=== PATIENT | female | born 1980 | race Caucasian/White ===

== ENCOUNTER 2017-01-27 12:00 | Inpatient (IN) | payer BC ==
[~2017-01-27] VITALS: Ht 170.2 cm; Wt 74.4 kg
[2017-01-27] MEDS ORDERED: LR 1,000 ML IV ONE (12:07)
[2017-01-27 12:25] LABS: BASOPHILS % (AUTO) 0.4 % (0.0-2.0); EOSINOPHILS # (AUTO) 0.1 K/uL (0.0-0.4); EOSINOPHILS % (AUTO) 1.1 % (0.0-4.0); HEMATOCRIT 36.6 % (36-48); LYMPHOCYTES # (AUTO) 1.8 K/uL (1.0-5.5); LYMPHOCYTES % (AUTO) 16.2 % (20.5-51.5); MEAN CORPUSCULAR HEMOGLOBIN 33 pg (27-31); MEAN CORPUSCULAR HGB CONC 36 % (32-36); MEAN CORPUSCULAR VOLUME 92 fL (79.0-98.0); MONOCYTES # (AUTO) 0.6 K/uL (0.0-1.0); MONOCYTES % (AUTO) 5.7 % (1.7-9.3); NEUTROPHILS # (AUTO) 8.4 K/uL (1.8-7.7); NEUTROPHILS % (AUTO) 76.6 % (40.0-70.0); PLATELET COUNT (AUTO) 196 K/uL (130-430); RED CELL DISTRIBUTION WIDTH 12.6 % (9.0-15.0); WHITE BLOOD COUNT (AUTO) 10.9 K/uL (4.8-10.8)
[2017-01-27 12:26] LABS: BILIRUBIN,URINE NEGATIVE (NEGATIVE); CLARITY/URINE SL HAZY (CLEAR); COLOR,URINE YELLOW (YELLOW); GLUCOSE,URINE NEGATIVE (NEGATIVE); KETONES,URINE TRACE (NEGATIVE); LEUKOCYTE ESTERASE ,URINE 3+ (NEGATIVE); NITRITE, URINE NEGATIVE (NEGATIVE); PH,URINE 7.5 (5.0-8.0); PROTEIN URINE NEGATIVE (NEGATIVE); UROBILINOGEN,URINE 0.2 (0.2-1.0)
[2017-01-27 12:29] LABS: BLOOD, URINE TRACE (NEGATIVE)
[2017-01-27] MEDS ORDERED: CEFAZOLIN 2 GM IVPB PREMIX 50 ML IV ONE (12:30)
[2017-01-27 12:35] LABS: BACTERIA,URINE FEW /HPF (None Seen); WBC,URINE 20-50 /HPF (0-3)
[2017-01-27 12:36] VITALS: BP_SYST 114
[2017-01-27] MEDS ORDERED: CLINDAMYCIN 600 MG in D5W 50 ML IV ONE (12:45)
[2017-01-27] MEDS ORDERED: LR 1,000 ML IV SCH ×2 (13:12→13:58)
[2017-01-27] MEDS ORDERED: ONDANSETRON HCL 4 MG/2 ML VIAL IVP ONE (13:15)
[2017-01-27] MEDS ORDERED: BISACODYL 10 MG/SUPPOSITORY RC PRN (13:15)
[2017-01-27] MEDS ORDERED: MORPHINE SULFATE 10MG/10ML PF AMP EP ONE (13:15)
[2017-01-27] MEDS ORDERED: LANOLIN 7 GM OINT. TP PRN (13:15)
[2017-01-27] MEDS ORDERED: OXYTOCIN 10 UNIT/ML VIAL IV ONE (13:15)
[2017-01-27] MEDS ORDERED: MEASLES,MUMPS&RUBELLA VACC/PF 12500 UNIT/0.5 ML VIAL SUBQ PRN (13:15)
[2017-01-27] MEDS ORDERED: MIDAZOLAM HCL 5 MG/5 ML VIAL IVP ONE (13:15)
[2017-01-27] MEDS ORDERED: MEPERIDINE HCL/PF 100 MG/ML AMP IM PRN (13:15)
[2017-01-27] MEDS ORDERED: LR 1,000 ML IV.SOLN IV ONE (13:15)
[2017-01-27] MEDS ORDERED: SENNOSIDES/DOCUSATE SODIUM 1 TAB TABLET(SENOKOT-S) PO PRN (13:15)
[2017-01-27] MEDS ORDERED: RHO(D) IMMUNE GLOBULIN/MALTOSE 1500 UNITS/1.3 ML (WINHRO) IM PRN (13:15)
[2017-01-27] MEDS ORDERED: CLINDAMYCIN PHOSPHATE 600 mg/50mL D5W IV ONE (13:15)
[2017-01-27] MEDS ORDERED: NALOXONE HCL 0.4 MG/ML AMP (NARCAN) IVP PRN (14:00)
[2017-01-27] MEDS ORDERED: MEPERIDINE HCL/PF 50 MG/ML AMP IVP PRN ×2 (14:00)
[2017-01-27] MEDS ORDERED: MORPHINE SULFATE 10MG/10ML PF AMP SP SCH (14:00)
[2017-01-27] MEDS ORDERED: MEPERIDINE HCL/PF 25 MG/ML DISP.SYRIN IVP PRN (14:00)
[2017-01-27] MEDS ORDERED: METOCLOPRAMIDE HCL 10 MG/2 ML VIAL IVP PRN (14:00)
[2017-01-27] MEDS ORDERED: KETOROLAC TROMETHAMINE 60 MG/2 ML VIAL IM PRN (14:00)
[2017-01-27] MEDS ORDERED: DIPHENHYDRAMINE INJ 50 MG/ML VIAL IM PRN (14:00)
[2017-01-27] MEDS ORDERED: ONDANSETRON HCL 4 MG/2 ML VIAL IVP PRN (14:00)
[2017-01-27 14:25] VITALS: BP_SYST 98
[2017-01-27] MEDS ORDERED: OXYTOCIN/NORMAL SALINE 1,000 ML IV ONE (14:45)
[2017-01-27] MEDS: CLINDAMYCIN 600 mg/50mL D5W 50 ML IV SCH (20:03)
[2017-01-27] MEDS ORDERED: TEMAZEPAM 15 MG CAPSULE PO PRN (21:00)
[2017-01-28] MEDS: CLINDAMYCIN 600 mg/50mL D5W 50 ML IV SCH ×2 (03:01→09:05)
[2017-01-28 06:57] LABS: BASOPHILS % (AUTO) 0.3 % (0.0-2.0); EOSINOPHILS % (AUTO) 0.3 % (0.0-4.0); HEMATOCRIT 32.2 % (36-48); HEMOGLOBIN 11.1 g/dL (12.0-16.0); LYMPHOCYTES # (AUTO) 1.7 K/uL (1.0-5.5); LYMPHOCYTES % (AUTO) 12.2 % (20.5-51.5); MEAN CORPUSCULAR HEMOGLOBIN 32 pg (27-31); MEAN CORPUSCULAR HGB CONC 34 % (32-36); MEAN CORPUSCULAR VOLUME 93 fL (79.0-98.0); MONOCYTES # (AUTO) 0.7 K/uL (0.0-1.0); MONOCYTES % (AUTO) 5.1 % (1.7-9.3); NEUTROPHILS # (AUTO) 11.6 K/uL (1.8-7.7); NEUTROPHILS % (AUTO) 82.1 % (40.0-70.0); PLATELET COUNT (AUTO) 213 K/uL (130-430); RED BLOOD CELL COUNT(AUTO) 3.48 MIL/uL (4.2-6.2); RED CELL DISTRIBUTION WIDTH 12.9 % (9.0-15.0)
[2017-01-28] MEDS: HYDROcodone/ACETAMIN 5-325 MG TAB (NORCO/ VICODIN) PO PRN ×4 (07:20→20:57)
[2017-01-28] MEDS: DOCUSATE SODIUM 100 MG CAPSULE PO PRN ×2 (09:06→20:55)
[2017-01-28] MEDS: SIMETHICONE 80 MG TAB.CHEW PO PRN ×4 (09:07→20:55)
[2017-01-28] MEDS: IBUPROFEN 800 MG TABLET PO PRN ×2 (09:07→14:42)
[2017-01-29] MEDS: IBUPROFEN 800 MG TABLET PO PRN ×5 (01:35→23:52)
[2017-01-29] MEDS: HYDROcodone/ACETAMIN 5-325 MG TAB (NORCO/ VICODIN) PO PRN ×3 (05:13→21:45)
[2017-01-29] MEDS: SIMETHICONE 80 MG TAB.CHEW PO PRN ×2 (12:11→21:44)
[2017-01-29] MEDS: DOCUSATE SODIUM 100 MG CAPSULE PO PRN (21:44)
[2017-01-30] MEDS: HYDROcodone/ACETAMIN 5-325 MG TAB (NORCO/ VICODIN) PO PRN ×3 (01:59→10:57)
== END 2017-01-30 12:55 | disposition home or self-care (01) | DRG 766 ==
LOC: SPU 12:00
PROVIDERS: ADMIT Specialist; ATTEND Specialist
PROC: 10D00Z1 Extraction of Products of Conception, Low, Open Approach (ICD-10-PCS; principal; 2017-01-27 13:30)
DX: O34.211 Maternal care for low transverse scar from previous cesarean delivery (principal); O99.89 Other specified diseases and conditions complicating pregnancy, childbirth and the puerperium; O34.13 Maternal care for benign tumor of corpus uteri, third trimester; Z37.0 Single live birth; Z3A.39 39 weeks gestation of pregnancy; Z88.1 Allergy status to other antibiotic agents; O09.523 Supervision of elderly multigravida, third trimester
CPT/HCPCS: 36415; 81000-TC; 85025; 86592; 86886; 86900; 86901; 94760; J0690; J1885; J2250; J2274; J2405; J2590; J3490; J7060; J7120